=== PATIENT | female | born 1960 | race African-American/Black ===

== ENCOUNTER 2016-12-25 17:38 | Emergency (ER) | payer MEDICAID, OTHER ==
[~2016-12-25] VITALS: Ht 177.8 cm; Wt 99.8 kg
[~2016-12-25 17:38] MED LIST: ALBUTEROL SULF8.5 GM INH; AZITHROMYCIN250 MG ORAL; AZITHROMYCIN250 MG PO; DYAZIDE1 CAP PO; PREDNISONE20 MG ORAL; PREDNISONE20 MG PO; PREDNISONE50 MG PO; PROAIR HFA8.5 GM INH; PROMETHAZINE-C118 M1 ORAL; PROMETHAZINE/COD5 ML PO; QVAR 80MCG ORA1 PUFF INH; QVAR7.3 GM INH; TRIAMTERENE-HC1 EAC6 ORAL; ZITHROMAX250 MG ORAL
[2016-12-25] MEDS ORDERED: PredniSONE 20mg tab ORAL ONE (18:15)
[2016-12-25] MEDS: Ipratropium 0.02% Inh Soln 2.5ml UD HHN SCH ×2 (18:27→18:39)
[2016-12-25] MEDS: Albuterol ud Inhalation HHN SCH ×2 (18:27→18:39)
[2016-12-25 18:37] VITALS: BP 143/86
[2016-12-25 20:11] VITALS: BP 133/84
[2016-12-25] MEDS ORDERED: PROAIR HFA8.5 GM INH (20:21)
[2016-12-25] MEDS ORDERED: ADVAIR 100-501 EACH INH (20:21)
[2016-12-25] MEDS ORDERED: ACETAMINOPHEN-1 EAC1 ORAL (20:21)
[2016-12-25] MEDS ORDERED: AZITHROMYCIN250 MG ORAL ×2 (20:21)
[2016-12-25] MEDS ORDERED: PREDNISONE20 MG ORAL (20:26)
[2016-12-25 20:35] VITALS: BP 136/86
--- NOTE | 2016-12-26 13:32 | Diagnostic Imaging Report ---
Indication: SOB, asthma Technique: One view of the chest Comparison: 05/22/2016 Findings: The patient is rotated to the right. There is some suprahilar atelectasis on the left. The lungs and pleural spaces are clear. The heart size is normal. No significant interim change Impression: No acute process
--- NOTE | 2016-12-26 15:57 | Emergency Room Report ---
History of Present Illness General Chief Complaint: Dyspnea/Respdistress Source: Patient Present Illness HPI 56 YO F presents with 2-3 weeks of chest tightness, productive cough "green sputum." +asthma, non-smoker. No improvement with albuterol. Takes only albuterol as rescue med but has been using it 3-4x daily recently. Denies fever /chills, chest pain, abd pain. 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 Hx Hypertension: Yes Hx Pacemaker: No Hx Asthma: Yes Hx COPD: No Hx Diabetes: No Hx Cerebrovascular Accident: No Hx Seizures: No Review of Systems All Other Systems: negative except mentioned in HPI Physical Exam Vital Signs Date Time Temp Pulse Resp B/P Pulse Ox O2 Delivery O2 Flow Rate FiO2 12/25/16 18:00 98.6 123 15 157/98 83 12/25/16 18:29 Room Air 12/25/16 18:37 15.0 Sp02 EP Interpretation: reviewed, abnormal General Appearance: normal inspection, well appearing, no apparent distress, alert, GCS 15, non-toxic Head: normocephalic, atraumatic Eyes: bilateral eye EOMI, bilateral eye PERRL ENT: normal ENT inspection, hearing grossly normal, normal voice Neck: normal inspection, full range of motion, supple, no bony tend Respiratory: normal inspection, lungs clear, normal breath sounds, no rhonchi, no respiratory distress, no retraction, no accessory muscle use, wheezing Cardiovascular #1: regular rate, rhythm, no edema Gastrointestinal: normal inspection, normal bowel sounds, non tender, soft, no guarding, no hernia Genitourinary: no CVA tenderness Musculoskeletal: normal inspection, back normal, normal range of motion, Perfecto' s Sign negative Neurologic: normal inspection, alert, responsive, speech normal Psychiatric: normal inspection, judgement/insight normal, mood/affect normal Skin: normal inspection, normal color, no rash Medical Decision Making Diagnostic Impression: Primary Impression: Asthma exacerbation Additional Impression: Atypical pneumonia ER Course 56 YO F with asthma exacerbation. VS notable for tachycardia likely due to repeated albuterol use. Normotensive. Afebrile. Wheezing throughout lungs on exam but not hypoxic or tachypnic or using access muscles Improved after 3 duonebs, steroids CXR negative for PNA Will tx with azithro for atypical PNA given extensive duration of symptoms, productive sputum Will start advair given patient's almost daily use of albuterol inhaler, lack of close PMD followup OF note, patient left before given prednisone Rx Rhythm Strip Diag. Results EP Interpretation: yes Rate: 102 Rhythm: NSR, no PVC's, no ectopy Chest X-Ray Diagnostic Results EP Interpretation: Yes Findings: no effusion, no pneumothorax, no acute cardiopulmonary disease Number of Views: 1 Last Vital Signs Date Time Temp Pulse Resp B/P Pulse Ox O2 Delivery O2 Flow Rate FiO2 12/25/16 20:35 98.7 105 23 136/86 99 Room Air 12/25/16 20:11 15.0 Status: improved Disposition: HOME, SELF-CARE Condition: Improved Scripts Prednisone* (PREDNISONE*) 20 Mg Tablet 20 MG ORAL BID for 5 Days, #10 TAB Prov: LULI ALVAREZ M.D. 12/25/16 Azithromycin* (ZITHROMAX*) 250 Mg Tablet 250 MG ORAL DAILY for 4 Days, TAB 0 Refills Prov: LULI ALVAREZ M.D. 12/25/16 Azithromycin* (ZITHROMAX*) 250 Mg Tablet 500 MG ORAL ONCE for 1 Day, TAB 0 Refills Prov: LULI ALVAREZ M.D. 12/25/16 Acetaminophen With Codeine (T#3) (TYLENOL #3 TAB*) Y Tab 2 TAB ORAL Q6H Y for For Pain for 7 Days, #30 TAB Prov: LULI ALVAREZ M.D. 12/25/16 Fluticasone/Salmeterol (Advair 100-50 Diskus) 1 Each Blst.w.dev 1 PUFF INH TWICE A DAY for 30 Days, #1 EA Prov: LULI ALVAREZ M.D. 12/25/16 Albuterol Sulfate* (PROAIR HFA*) 8.5 Gm Hfa.aer.ad 2 PUFFS INH Q6H, #8.5 GM 0 Refills Prov: LULI ALVAREZ M.D. 12/25/16 Patient Instructions: Community-Acquired Pneumonia, Adult Additional Instructions: - Take ALL azithromycin for ?atypical Pneumonia - Start advair twice daily as a regular medication and only use albuterol or nebulizwer as a rescue medication - You can also take Tyelnol #3 for cough at night - Follow up with primary care doctor in 1-2 weeks for asthma LULI ALVAREZ M.D. Dec 26, 2016 15:57
== END 2016-12-25 20:35 | disposition home or self-care (01) ==
LOC: EMR 20:12
DX: J45.901 Unspecified asthma with (acute) exacerbation (principal); J18.9 Pneumonia, unspecified organism; I10 Essential (primary) hypertension
CPT/HCPCS: 71010; 94640; 94664; 99284

== ENCOUNTER 2017-05-18 22:43 | Emergency (ER) | payer OTHER ==
[~2017-05-18] VITALS: Ht 172.7 cm; Wt 108.9 kg
[~2017-05-18 22:43] MED LIST changes: +ACETAMINOPHEN-1 EAC1 ORAL; +ADVAIR 100-501 EACH INH
[2017-05-18 22:51] VITALS: BP 156/84
[2017-05-18] MEDS ORDERED: Ipratropium 0.02% Inh Soln 2.5ml UD HHN ONE (23:15)
[2017-05-18] MEDS ORDERED: Albuterol ud Inhalation HHN ONE (23:15)
[2017-05-18] MEDS ORDERED: Azithromycin 500 MG in NS 275 ML IV ONE (23:15)
[2017-05-18] MEDS ORDERED: Solu-MEDROL 125mg Inj IVP ONE (23:15)
[2017-05-18] MEDS ORDERED: Azithromycin Inj IV ONE (23:36)
[2017-05-18 23:42] LABS: BASOPHILS % (AUTO) 1.4 % (0.0-2.0); EOSINOPHILS % (AUTO) 15.5 % (0.0-3.0); LYMPHOCYTES % (AUTO) 19.7 % (20.0-45.0); MEAN CORPUSCULAR HEMOGLOBIN 30.8 PG (27.0-31.0); MEAN CORPUSCULAR HGB CONC 33.3 G/DL (32.0-36.0); MEAN CORPUSCULAR VOLUME 92 FL (80-99); MEAN PLATELET VOLUME 7.1 FL (6.5-10.1); MONOCYTES % (AUTO) 6.8 % (1.0-10.0); NEUTROPHILS % (AUTO) 56.7 % (45.0-75.0); PLATELET COUNT 342 K/UL (150-450); RED BLOOD COUNT 4.39 M/UL (4.20-5.40); RED CELL DISTRIBUTION WIDTH 12.1 % (11.6-14.8); WHITE BLOOD COUNT 8.7 K/UL (4.8-10.8)
[2017-05-19 00:09] LABS: INR 0.9 (0.9-1.1); PROTHROMBIN TIME 9.6 SEC (9.30-11.50)
[2017-05-19 00:23] LABS: ALANINE AMINOTRANSFERASE 25 U/L (3-33); ALBUMIN/GLOBULIN RATIO 1.2 (1.0-2.7); ANION GAP 17 (5-15); ASPARTATE AMINO TRANSFERASE 20 U/L (5-40); CALCIUM 9.9 mg/dL (8.6-10.2); CARBON DIOXIDE 27 mEQ/L (20-30); CHLORIDE 96 mEQ/L (98-107); CREATININE 0.9 mg/dL (0.5-0.9); GLOMERULAR FILTRATION RATE > 60 mL/min (>60); HEMOLYSIS 5; POTASSIUM 3.1 mEQ/L (3.4-4.9); SODIUM 140 mEQ/L (135-145)
[2017-05-19 00:25] LABS: TROPONIN I < 0.30 ng/mL (<=0.30)
[2017-05-19] MEDS: Albuterol ud Inhalation HHN SCH ×2 (00:29→01:04)
[2017-05-19 00:42] LABS: APPEARANCE,URINE CLEAR; KETONES,URINE NEGATIVE (NEGATIVE); LEUKOCYTE ESTERASE ,URINE 2+ (NEGATIVE); NITRITE,URINE NEGATIVE (NEGATIVE); PH,URINE 7 (4.5-8.0); PROTEIN,URINE NEGATIVE (NEGATIVE); UROBILINOGEN,URINE NORMAL MG/DL (0.0-1.0)
[2017-05-19 00:51] VITALS: BP 145/81
[2017-05-19 00:59] LABS: BACTERIA,URINE FEW /HPF; RBC,URINE 0-2 /HPF (0 - 2); SQUAMOUS EPITHELIAL CELL,UR FEW /LPF (NONE/OCC)
[2017-05-19] MEDS ORDERED: Albuterol ud Inhalation HHN ONE (02:30)
--- NOTE | 2017-05-19 02:36 | Emergency Room Report ---
History of Present Illness General Chief Complaint: Asthma Source: Patient Present Illness HPI Patient presents with dyspnea and wheezing. This for several days, now worsened. Using inhaler every 1/2 hour without relief. Has nebulizer, but tube has leak and not getting meds. Not worst attack. Has been on prednisone in the past, not now. Had rx for Qvar, but this was changed to Advair diskus which she did not know how to use. Yellow phlegm. Last exacerbation treated with zithromax course (months ago). MENA and minimal exertional capacity at this time. Jose chest pain, but has pressure in her chest. No NV. No dysuria. No swelling in extrem or pain there. Some headache. [place] feverish. No other significant medical problems. Post menopausal. 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 Hx Hypertension: Yes Hx Pacemaker: No Hx Asthma: Yes Hx COPD: No Hx Diabetes: No Hx Cerebrovascular Accident: No Hx Seizures: No Review of Systems All Other Systems: negative except mentioned in HPI Physical Exam Vital Signs Date Time Temp Pulse Resp B/P Pulse Ox O2 Delivery O2 Flow Rate FiO2 05/18/17 22:51 97.9 110 20 156/84 93 Room Air Sp02 EP Interpretation: reviewed, abnormal - interpreted as low by me General Appearance: well appearing, no apparent distress, GCS 15 Head: normocephalic Eyes: bilateral eye PERRL, bilateral eye normal inspection ENT: moist mucus membranes Neck: supple Respiratory: chest non-tender, no accessory muscle use, wheezing, expiration, inspiration Cardiovascular #1: tachycardia Cardiovascular #2: 2+ radial (R) Gastrointestinal: normal inspection, normal bowel sounds, non tender, no mass, non-distended Musculoskeletal: back normal, gait/station normal, normal range of motion Neurologic: alert, oriented x3, grossly normal Psychiatric: mood/affect normal Skin: normal inspection, warm/dry Medical Decision Making Diagnostic Impression: Primary Impression: Asthma exacerbation Additional Impressions: Hilar enlargement Eosinophilia UTI (urinary tract infection) Qualified Codes: N30.00 - Acute cystitis without hematuria ER Course Patient with wheezing and MENA. Ddx: asthma, pneumonia, AMI, bronchitis amongst others. Exam against PE. Fair respiratory compromise with hypoxia. Emergent evaluation with EKG, CXR, labs. Treatment with solumedrol, breathing treatments , hydration and antibiotics. Labs with eosinophila. CXR with large R hilum. After exercise, patient with significant wheezing and MENA. Repeating treatment and adding magnesium. Discussion of eosinophilia and R hilum. Admit med. UTI - adding macrobid. Patient refusing transfer. Repeat treatment. O2 sat still 90-91%. Improved but still with some wheezing after ambulation (MENA resolved). Sat 95% . She has inhaler and medicine for nebulizer (and now tubing). Advised to return if not doing well. Laboratory Tests Test 05/18/17 23:21 05/18/17 23:28 05/18/17 23:45 White Blood Count 8.7 K/UL (4.8-10.8) Red Blood Count 4.39 M/UL (4.20-5.40) Hemoglobin 13.5 G/DL (12.0-16.0) Hematocrit 40.5 % (37.0-47.0) Mean Corpuscular Volume 92 FL (80-99) Mean Corpuscular Hemoglobin 30.8 PG (27.0-31.0) Mean Corpuscular Hemoglobin Concent 33.3 G/DL (32.0-36.0) Red Cell Distribution Width 12.1 % (11.6-14.8) Platelet Count 342 K/UL (150-450) Mean Platelet Volume 7.1 FL (6.5-10.1) Neutrophils (%) (Auto) 56.7 % (45.0-75.0) Lymphocytes (%) (Auto) 19.7 % (20.0-45.0) L Monocytes (%) (Auto) 6.8 % (1.0-10.0) Eosinophils (%) (Auto) 15.5 % (0.0-3.0) H Basophils (%) (Auto) 1.4 % (0.0-2.0) Prothrombin Time 9.6 SEC (9.30-11.50) Prothrombin Time INR 0.9 (0.9-1.1) PTT 26 SEC (23-33) Sodium Level 140 mEQ/L (135-145) Potassium Level 3.1 mEQ/L (3.4-4.9) L Chloride Level 96 mEQ/L (98-107) L Carbon Dioxide Level 27 mEQ/L (20-30) Anion Gap 17 (5-15) H Blood Urea Nitrogen 10 mg/dL (7-23) Creatinine 0.9 mg/dL (0.5-0.9) Estimate Glomerular Filtration Rate > 60 mL/min (>60) Glucose Level 126 mg/dL (74-106) H Calcium Level 9.9 mg/dL (8.6-10.2) Total Bilirubin 0.5 mg/dL (0.0-1.2) Aspartate Amino Transferase (AST) 20 U/L (5-40) Alanine Aminotransferase (ALT) 25 U/L (3-33) Alkaline Phosphatase 86 U/L (35-104) Total Creatine Kinase 207 U/L (26-140) H Troponin I < 0.30 ng/mL (<=0.30) Pro-B-Type Natriuretic Peptide 105 pg/mL (0-125) Total Protein 8.0 g/dL (6.6-8.7) Albumin 4.4 g/dL (3.5-5.2) Globulin 3.6 g/dL Albumin/Globulin Ratio 1.2 (1.0-2.7) Lactic Acid Level 1.50 mmol/L (0.66-2.22) Urine Color Pale yellow Urine Appearance Clear Urine pH 7 (4.5-8.0) Urine Specific [place] 1.015 (1.005-1.035) Urine Protein Negative (NEGATIVE) Urine Glucose (UA) Negative (NEGATIVE) Urine Ketones Negative (NEGATIVE) Urine Occult Blood 1+ (NEGATIVE) H Urine Nitrite Negative (NEGATIVE) Urine Bilirubin Negative (NEGATIVE) Urine Urobilinogen Normal MG/DL (0.0-1.0) Urine Leukocyte Esterase 2+ (NEGATIVE) H Urine RBC 0-2 /HPF (0 - 2) Urine WBC 10-15 /HPF (0 - 2) H Urine Squamous Epithelial Cells Few /LPF (NONE/OCC) Urine Bacteria Few /HPF (NONE) Chest X-Ray Diagnostic Results Chest X-Ray Ordered: Yes # of Views/Limited/Complete: 1 View EP Interpretation: Yes Interpretation: no consolidation, no effusion, no pneumothorax, other - large hilum R Indication: Shortness of Breath Impression: Other Interpreting ER Provider: Shilo Last Vital Signs Date Time Temp Pulse Resp B/P Pulse Ox O2 Delivery O2 Flow Rate FiO2 05/19/17 05:00 97.9 93 18 115/57 100 Room Air Status: improved Disposition: HOME, SELF-CARE Condition: Improved Scripts Prednisone* (PREDNISONE*) 10 Mg Tablet 10 MG ORAL DAILY, #21 TAB 0 Refills 4 po QD X 2, 3 po QD X 2, 2 po QD X 2, 1 po QD X 4 Prov: Félix Lao M.D. 05/19/17 Nitrofurantoin Monohyd/M-Cryst* (MACROBID 100 MG*) 100 Mg Capsule 100 MG ORAL EVERY 12 HOURS, #14 CAP Prov: Félix Lao M.D. 05/19/17 Azithromycin* (ZITHROMAX*) 250 Mg Tablet 250 MG ORAL DAILY for 6 Days, #6 TAB Prov: Félix Lao M.D. 05/19/17 Referrals: [facility] (PCP) Félix Lao M.D. May 19, 2017 02:36
[2017-05-19 02:51] VITALS: BP 128/78
[2017-05-19] MEDS ORDERED: PREDNISONE10 MG ORAL (04:46)
[2017-05-19] MEDS ORDERED: NITROFURANTOIN100 M2 ORAL (04:46)
[2017-05-19] MEDS ORDERED: AZITHROMYCIN250 MG ORAL (04:46)
[2017-05-19 04:51] VITALS: BP 115/57
[2017-05-19 05:00] VITALS: BP 115/57
--- NOTE | 2017-05-19 09:16 | Diagnostic Imaging Report ---
Indications: Shortness of breath, asthma Technique: Portable AP chest Findings: Comparison: None Cardiac silhouette remains normal in size. Central pulmonary vasculature remains prominent, apparently right greater than left, peripheral Pulmonary vasculature remains within normal limits. Left lung volume loss and increased bronchovascular markings in its upper lobe have resolved. Suggestion of small nodular opacity left lung base not seen previously. Lungs and pleura currently otherwise clear. IMPRESSION: Questionable small nodular opacity left lung base may represent summation artifact. Focal lung pathology, whether acute or chronic, not excludable. Upright PA and lateral chest radiographs with better inspiratory effort and optimal technique recommended for more complete evaluation. Otherwise no current evidence of acute cardiopulmonary disease Persistent bilateral hilar fullness, suspect element of pulmonary arterial hypertension. Superimposed mass/adenopathy, particularly on right, not excludable. Consider contrast-enhanced CT scan the thorax for further evaluation.
--- NOTE | 2017-05-20 20:07 | Cardiology Report ---
APPROVED REPORT EKG Measurement Heart [id number] Sinus tachycardia Possible Left atrial enlargement Borderline ECG
== END 2017-05-19 05:00 | disposition home or self-care (01) ==
LOC: EMR 23:20
DX: J45.901 Unspecified asthma with (acute) exacerbation (principal); N39.0 Urinary tract infection, site not specified; D72.1 Eosinophilia; R91.8 Other nonspecific abnormal finding of lung field; I10 Essential (primary) hypertension
CPT/HCPCS: 36415; 71010; 80053; 81003; 82550; 83605; 83880; 84484; 85025; 85610; 85730; 87086; 93005; 94640; 94664; 96360; 96361; 96374; 96375; 99284; J0456; J2930; J7050

== ENCOUNTER 2017-08-26 13:51 | Emergency (ER) | payer OTHER ==
[~2017-08-26] VITALS: Ht 172.7 cm; Wt 108.9 kg
[~2017-08-26 13:51] MED LIST changes: +NITROFURANTOIN100 M2 ORAL; +PREDNISONE10 MG ORAL
[2017-08-26 14:14] VITALS: BP 126/69
[2017-08-26] MEDS ORDERED: PROAIR HFA8.5 GM INH (14:21)
[2017-08-26] MEDS ORDERED: DULERA 100 MCG/13 GM INH (14:21)
[2017-08-26 14:24] VITALS: BP 126/69
--- NOTE | 2017-08-26 14:39 | Emergency Room Report ---
History of Present Illness General Chief Complaint: Asthma Source: Patient, Medical Record Present Illness HPI 57YOF walked into ER for "clearance note for work." Has asthma Non-smoker On daily dulera, Albuterol machine/pump as needed Only uses albuterol "when I'm sick" Endorses recent URI that resolved Wants replacemnt of tubing for home nebulizer as well Allergies: Coded Allergies: No Known Allergies (Unverified , 10/23/12) Patient History Past Medical History: asthma Past Surgical History: none Pertinent Family History: none Social History: Denies: smoking, alcohol use, drug use Last Menstrual Period: 2014 Now: No Immunizations: UTD Reviewed Nursing Documentation: PMH: Agreed, PSxH: Agreed Nursing Documentation-PMH Past Medical History: No History, Except For 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 Hx Hypertension: Yes Hx Pacemaker: No Hx Asthma: Yes Hx COPD: No Hx Diabetes: No Hx Cerebrovascular Accident: No Hx Seizures: No Review of Systems All Other Systems: negative except mentioned in HPI Physical Exam Vital Signs Date Time Temp Pulse Resp B/P (MAP) Pulse Ox O2 Delivery O2 Flow Rate FiO2 08/26/17 14:04 98.1 86 18 126/69 96 Room Air Sp02 EP Interpretation: reviewed, normal General Appearance: normal inspection, well appearing, no apparent distress, alert, GCS 15, non-toxic Head: normocephalic, atraumatic Eyes: bilateral eye PERRL, bilateral eye EOMI ENT: normal ENT inspection, hearing grossly normal, normal voice Neck: normal inspection, full range of motion, supple, no bony tend Respiratory: normal inspection, lungs clear, normal breath sounds, no rhonchi, no respiratory distress, no retraction, no accessory muscle use, no wheezing, speaking full sentences Cardiovascular #1: normal inspection, normal peripheral pulses, regular rate, rhythm, no edema Gastrointestinal: normal inspection, normal bowel sounds, non tender, soft, no guarding, no hernia Genitourinary: no CVA tenderness Musculoskeletal: normal inspection, back normal, normal range of motion, Perfecto' s Sign negative Neurologic: normal inspection, alert, oriented x3, responsive, lay brother III-XII nml as tested, motor strength/tone normal, speech normal Psychiatric: normal inspection, judgement/insight normal, mood/affect normal Skin: normal inspection, normal color, no rash Lymphatic: normal inspection Medical Decision Making Diagnostic Impression: Primary Impression: URI (upper respiratory infection) Qualified Codes: J06.9 - Acute upper respiratory infection, unspecified ER Course Patient here for medical clearance for work VSS. Afebrile No whezing, hypoxia, SOB Asymptomatic No sign of bacterial infection on clinical exam Refilled Dulera, albuterol Replacement tubing provided PMD followup as needed Last Vital Signs Date Time Temp Pulse Resp B/P (MAP) Pulse Ox O2 Delivery O2 Flow Rate FiO2 08/26/17 14:24 98.1 18 126/69 96 Room Air 08/26/17 14:14 86 Status: improved Disposition: HOME, SELF-CARE Condition: Improved Scripts Mometasone/Formoterol (DULERA 100 MCG/5 MCG INHALER) 13 Gm Hfa.aer.ad 2 PUFFS INH EVERY 12 HOURS for 30 Days, #1 UNIT Prov: LULI ALVAREZ M.D. 08/26/17 Albuterol Sulfate* (PROAIR HFA*) 8.5 Gm Hfa.aer.ad 2 PUFFS INH Q6H Y for Shortness of Breath MDD 2 for 7 Days, #1 EA Inhale two puffs orally every 6 hours as needed for wheezing Prov: LULI ALVAREZ M.D. 08/26/17 Referrals: [facility] (PCP) Departure Forms: Return to Work Return to Work in (Days): 1 Return to Work Date: Aug 27, 2017 Patient Instructions: Asthma, Adult Additional Instructions: - Please use your Dulera every day as prescribed - Use albuterol only as needed for asthma attack - Follow up with your doctor as needed LULI ALVAREZ M.D. Aug 26, 2017 14:39
== END 2017-08-26 14:30 | disposition home or self-care (01) ==
LOC: EMR 14:12
DX: J06.9 Acute upper respiratory infection, unspecified (principal); J45.909 Unspecified asthma, uncomplicated; Z79.899 Other long term (current) drug therapy
CPT/HCPCS: 99284

== ENCOUNTER 2018-04-02 15:47 | Emergency (ER) | payer SELFPAY ==
[~2018-04-02] VITALS: Ht 175.3 cm; Wt 108.9 kg
[~2018-04-02 15:47] MED LIST changes: +DULERA 100 MCG/13 GM INH
[2018-04-02] MEDS ORDERED: Albuterol/Ipratropium 3ml neb HHN ONE (16:15)
--- NOTE | 2018-04-02 16:54 | Emergency Room Report ---
History of Present Illness General Chief Complaint: Asthma Source: Patient Present Illness HPI 57-year-old female presents to the emergency department complaining of continuous cough with exacerbation of her asthma and wheezing throughout the day. Patient states that she ran out of her albuterol inhaler 3 days ago. Patient states she's been having the cough and exacerbation of her symptoms 1 week. Patient denies fever she reports some sputum production he denies ill contacts or recent travel. Denies CP, Palpitations, LOC, AMS, dizziness, Changes in Vision, Sensation, paresthesias, or a sudden severe headache. 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 Hx Hypertension: Yes Hx Pacemaker: No Hx Asthma: Yes Hx COPD: No Hx Diabetes: No Hx Cerebrovascular Accident: No Hx Seizures: No Review of Systems All Other Systems: negative except mentioned in HPI Physical Exam Vital Signs Date Time Temp Pulse Resp B/P (MAP) Pulse Ox O2 Delivery O2 Flow Rate FiO2 04/02/18 15:51 98.2 91 20 139/81 92 Room Air 98.2 Sp02 EP Interpretation: reviewed, normal General Appearance: no apparent distress, alert, GCS 15, non-toxic Head: normocephalic, atraumatic Eyes: bilateral eye normal inspection, bilateral eye PERRL ENT: hearing grossly normal, normal voice Neck: full range of motion Respiratory: chest non-tender, lungs clear, no respiratory distress, speaking full sentences, wheezing - expiratory bilaterally Cardiovascular #1: regular rate, rhythm, no edema, normal capillary refill Musculoskeletal: back normal, gait/station normal, normal range of motion Neurologic: alert, oriented x3, responsive, motor strength/tone normal, sensory intact, speech normal, grossly normal Psychiatric: judgement/insight normal Skin: normal color, no rash, warm/dry, well hydrated Lymphatic: no adenopathy Medical Decision Making PA Attestation Dr. Santizo is my supervising physician whom pt. management has been discussed with. Diagnostic Impression: Primary Impression: Asthma exacerbation Qualified Codes: J45.901 - Unspecified asthma with (acute) exacerbation ER Course 57-year-old female presents to the emergency department complaining of continuous cough with exacerbation of her asthma and wheezing throughout the day. Patient states that she ran out of her albuterol inhaler 3 days ago. Patient states she's been having the cough and exacerbation of her symptoms 1 week. Patient denies fever she reports some sputum production he denies ill contacts or recent travel. Denies CP, Palpitations, LOC, AMS, dizziness, Changes in Vision, Sensation, paresthesias, or a sudden severe headache. --Patient also requests an indication refill for 40 mg atorvastatin for which she takes daily. Ddx considered but are not limited to asthma exacerbation, CHF, URI, pneumonia, PE, strep pharyngitis, meningitis. Vital signs: Pt. is afebrile, VS are WNL H&PE are most consistent with URI, asthma exacerbation ORDERS: none required at this time, the diagnosis is clinical ED INTERVENTIONS: -Duo Nebs - Prednisone PO - re-examination post nebulized treatment lungs are CTA bilaterally. DISCHARGE: At this time pt. is stable for d/c to home. Will provide printed patient care instructions, and any necessary prescriptions. Care plan and follow up instructions have been discussed with the patient prior to discharge. Last Vital Signs Date Time Temp Pulse Resp B/P (MAP) Pulse Ox O2 Delivery O2 Flow Rate FiO2 04/02/18 16:25 92 20 Room Air 04/02/18 15:51 98.2 139/81 92 98.2 Disposition: HOME, SELF-CARE Condition: Stable Scripts Atorvastatin Calcium* (ATORVASTATIN CALCIUM*) 40 Mg Tablet 40 MG ORAL BEDTIME for 30 Days, #30 TAB Prov: Krupa AndrewsAZandra 04/02/18 Codeine/Promethazine Hcl* (PROMETHAZINE-CODEINE SYRUP*) 118 Ml Syrup 5 ML ORAL Q6H PRN for For Cough, #120 ML 0 Refills Prov: Krupa Andrews. 04/02/18 Guaifenesin (Guaifenesin) 1,200 Mg Tab.er.12h 1200 MG PO BID, #10 TAB Prov: Krupa Andrews P.A. 04/02/18 Prednisone* (PREDNISONE*) 20 Mg Tablet 2 TAB ORAL DAILY for 5 Days, #10 TAB Prov: Krupa Andrews.A. 04/02/18 Albuterol Sulfate* (ALBUTEROL SULFATE MDI*) 8.5 Gm Hfa.aer.ad 2 PUFF INH Q4H, #1 INH 3 Refills Prov: Krupa Andrews 04/02/18 Patient Instructions: Asthma, Adult Additional Instructions: Take medications as directed. Follow up with a Primary Care Provider in 3-5 days, even if your symptoms have resolved. --Please review list of primary care clinics, if you do not already have a primary care provider Return sooner to ED if new symptoms occur, or current symptoms become worse. Do not drink alcohol, drive, or operate heavy machinery while taking cough syrup as this may cause drowsiness. - Please note that this Emergency Department Report was dictated using [employer] art therapist technology software, occasionally this can lead to erroneous entry secondary to interpretation by the dictation equipment. Krupa Andrews April 02, 2018 16:54
[2018-04-02] MEDS ORDERED: ALBUTEROL SULF8.5 GM INH (16:56)
[2018-04-02] MEDS ORDERED: PROMETHAZINE-C118 M1 ORAL (16:56)
[2018-04-02] MEDS ORDERED: GUAIFENESIN1200 MG PO (16:56)
[2018-04-02] MEDS ORDERED: PREDNISONE20 MG ORAL (16:56)
[2018-04-02] MEDS ORDERED: ATORVASTATIN CA40 MG ORAL (16:58)
[2018-04-02 17:25] VITALS: BP 122/80
== END 2018-04-02 17:29 | disposition home or self-care (01) ==
LOC: EMR 17:26
DX: J45.901 Unspecified asthma with (acute) exacerbation (principal); I10 Essential (primary) hypertension
CPT/HCPCS: 94640; 94664; 99284; J7512; J7620